=== PATIENT | female | born 1955 | race Caucasian/White ===

== ENCOUNTER 2019-10-06 08:25 | Outpatient (CLI) | payer MEDICARE, SELFPAY ==
[2019-10-06 08:40] VITALS: BP 145/86; PULSE 73; RESP 18; TEMP 36.8; O2SAT 94
[2019-10-06 08:50] VITALS: BMI 29.0
[2019-10-06] MEDS: denosumab 60 mg SDV SUBCUT (09:03)
== END 2019-10-06 08:26 | disposition home or self-care (01) ==
LOC: GILAB 08:31
PROVIDERS: PCP Family Medicine; Visit Provider Family Medicine
DX: M81.0 Age-related osteoporosis without current pathological fracture (principal)
CPT/HCPCS: 96372; J0897

== ENCOUNTER 2020-02-24 11:02 | Outpatient (CLI) | payer MEDICARE, SELFPAY ==
--- NOTE | 2020-02-24 11:27 | MM_ITS ---
WS: [id number] BILATERAL SCREENING DIGITAL MAMMOGRAM WITH CAD HISTORY: SCREENING COMPARISON: 09/14/2018 and 07/05/2013 Bilateral CC and MLO views submitted. Computer aided detection analyzed. Breast composition: There are scattered areas of fibroglandular density. No suspicious masses, microc alcifications or architectural distortion. Stable calcifications and RIGHT breast asymmetry. MM/[place] [id number] IMPRESSION: BI-RADS: 2-Benign FOLLOW UP: 1 Year Follow-up
== END 2020-02-24 11:03 | disposition home or self-care (01) ==
LOC: RADSHAW 11:07
PROVIDERS: PCP Family Medicine; Visit Provider Family Medicine
DX: Z12.31 Encounter for screening mammogram for malignant neoplasm of breast (principal)
CPT/HCPCS: 77067

== ENCOUNTER → 2021-12-26 12:59 | Outpatient (BNVA) | payer MEDICARE, SELFPAY | PROVIDERS: PCP Family Medicine; Referring Provider Family Medicine; Visit Provider Specialist | DX: G56.12 Other lesions of median nerve, left upper limb (principal); M48.02 Spinal stenosis, cervical region | CPT/HCPCS: 95908; 95909 ==

== ENCOUNTER → 2022-01-02 12:25 | Outpatient (BNVA) | payer MEDICARE, SELFPAY | PROVIDERS: PCP Family Medicine; Referring Provider Family Medicine; Visit Provider Specialist | DX: M48.02 Spinal stenosis, cervical region (principal); G56.12 Other lesions of median nerve, left upper limb; M41.9 Scoliosis, unspecified; M12.519 Traumatic arthropathy, unspecified shoulder; Z96.642 Presence of left artificial hip joint | CPT/HCPCS: 99204 ==

== ENCOUNTER → 2022-02-28 08:57 | Outpatient (BNVA) | payer MEDICARE, SELFPAY | PROVIDERS: PCP Family Medicine; Referring Provider Family Medicine; Visit Provider Specialist | DX: M48.02 Spinal stenosis, cervical region (principal); G56.12 Other lesions of median nerve, left upper limb; M12.519 Traumatic arthropathy, unspecified shoulder; F17.200 Nicotine dependence, unspecified, uncomplicated | CPT/HCPCS: 95861; 99213; 99406 ==

== ENCOUNTER 2022-03-05 09:41 | Outpatient (CLI) | payer MEDICARE, SELFPAY ==
--- NOTE | 2022-03-05 | MR_ITS ---
WS: [id number] MRI CERVICAL SPINE NONCONTRAST TECHNIQUE: Sagittal T1, T2 and STIR imaging. Axial T2, gradient, and fiesta imaging. CLINICAL INFORMATION: SPINAL STENOSIS,CERVICAL REGION COMPARISON: MRI 2017 FINDINGS: Straightening of the normal cervical lordosis. Disc osteophyte complexes worse at C4-C5, C5-C6, C6-C7 with slight contact of the cervical cord. Cord signal is normal. C2-C3: Mild facet arthropathy. Mild RIGHT and no significant LEFT foraminal narrowing. C3-C4: Disc osteophyte complex with endplate ridging. Spinal canal is patent. Mild bilateral bony for aminal narrowing. C4-C5: Disc osteophyte complex with endplate ridging. Slight indentation LEFT ventral cervical cord. Mild central canal stenosis. Severe LEFT bony foraminal narrowing. Mild to moderate RIGHT bony forami nal narrowing. Mild facet arthropathy. C5-C6: Disc osteophyte complex with endplate ridging. Moderate LEFT and mild RIGHT bony foraminal jose carlos rowing. Mild facet arthropathy. Mild central canal stenosis. C6-C7: Disc osteophyte complex with endplate ridging. Slight indentation RIGHT ventral cervical cord. Mild central canal stenosis. Moderate RIGHT and mild LEFT bony foraminal narrowing. C7-T1: Normal. Visualized brain stem structures: Normal. Prevertebral soft tissues: Normal. Small vessel changes in the boris. MR/MR cervical spin wo con* [id number] IMPRESSION: 1. Straightening of the normal cervical lordosis. Cord signal is normal. 2. Mild central canal stenosis C4-C5, C5-C6 and C6-C7 with slight contact of t he cervical cord. Shallow RIGHT pericentral disc protrusion C6-C7. This appears stable compared to 2017. 3. Progressed severe LEFT C4-C5 bony foraminal narrowing. 4. Moderate LEFT C5-C6 and RIGHT C6-C7 bony foraminal narrowing similar in dagoberto earance to previous.
--- NOTE | 2022-03-05 10:15 | MR_ITS ---
WS: [id number] MRI LEFT SHOULDER NONCONTRAST TECHNIQUE: Sagittal T2, coronal T1, T2 and proton density imaging. Axial gradient PDE imaging. CLINICAL INFORMATION: M12.519 - Traumatic arthropathy, unspecified shoulder COMPARISON: None. FINDINGS: Moderate to advanced degenerative arthritis AC joint with mild downsloping acromion. Slight subacromi al spurring. Fluid and edema at the AC joint. Small amount of subacromial/subdeltoid fluid. Tendinopa thy involving the distal supraspinatus which is intact. Normal infraspinatus. Normal teres minor and subscapularis. Normal biceps tendon in the bicipital groove. Intra-articular biceps tendon appears intact. Normal bi ceps labral anchor. Degenerative fraying of the glenoid labrum. MR/MR shoulder LT wo con* [id number] IMPRESSION: 1. Moderate to advanced degenerative arthritis AC joint with mild edema. Small amount of subacromial/subdeltoid fluid. Slight impingement on the distal supra spinatus. 2. Chronic thinning of the distal supraspinatus with tendinopathy. No high-gra de tear. 3. Rotator cuff is otherwise intact. 4. Normal biceps tendon in the bicipital groove. Normal intra-articular biceps tendon. 5. Degenerative fraying of the glenoid labrum with moderate to advanced degene rative arthritis glenohumeral joint.
== END 2022-03-05 09:42 | disposition home or self-care (01) ==
LOC: RAD 09:46
PROVIDERS: PCP Family Medicine; Visit Provider Specialist
DX: M48.02 Spinal stenosis, cervical region (principal); G56.12 Other lesions of median nerve, left upper limb; M12.512 Traumatic arthropathy, left shoulder; M50.223 Other cervical disc displacement at C6-C7 level
CPT/HCPCS: 72141; 73221

== ENCOUNTER → 2022-03-26 12:59 | Outpatient (BNVA) | payer MEDICARE, SELFPAY | PROVIDERS: PCP Family Medicine; Visit Provider Specialist | DX: M48.02 Spinal stenosis, cervical region (principal); M54.50 Low back pain, unspecified; Z96.642 Presence of left artificial hip joint; F17.200 Nicotine dependence, unspecified, uncomplicated | CPT/HCPCS: 99214 ==

== ENCOUNTER 2024-01-02 12:42 | Outpatient (CLI) | payer MEDICARE, SELFPAY ==
--- NOTE | 2024-01-02 12:47 | XR_ITS ---
WS: [id number] DEXA (DUAL ENERGY X-RAY ABSORPTIOMETRY) Bone mineral density was performed using a [employer] machine. HISTORY: ASYMPTOMATIC MENOPAUSAL STATE COMPARISON: 09/16/2018 Lumbar spine BMD (L1-L4): 1.295 g/cm2 T score: 1.0 Z score: 2.8 Total hip BMD: Right: 0.615. T score: -3.1 Z score: -1.5 Left forearm BMD: 0.467 g/cm2. T score: -4.7 Z score: -2.8 10 year probability of a major osteoporotic fracture is 17.5%. Compared to the prior study from 09/16/2018. Lumbar spine bone mineral density has decreased by 2.3%. RIGHT hip bone mineral density has decreased by 9.0%. XR/XR DEXA axial skeleton* [id number] IMPRESSION: OSTEOPOROSIS based upon the WHO classification for females. Significant decrease in bone mineral density within the lumbar spine and RIGHT hip since the prior study.
--- NOTE | 2024-01-02 12:47 | MM_ITS ---
WS: [id number] BILATERAL 3D TOMOSYNTHESIS DIGITAL SCREENING MAMMOGRAPHY WITH CAD CLINICAL INFORMATION: SCREENING HISTORY: Screening mammogram. No current complaints. COMPARISON: 2020 TECHNIQUE: Bilateral CC and MLO views. FINDINGS: Scattered fibroglandular densities bilaterally. Increasing spiculated asymmetric density inner RIGHT breast posterior depth. Recommend RIGHT breast diagnostic mammography and ultrasound in further evalu ation. LEFT breast is unremarkable. MM/[place] [id number] IMPRESSION: DENSITY: There are scattered areas of fibroglandular density. BI-RADS: 0 - Incomplete: Need additional imaging evaluation. FOLLOW UP: Need Additional Imaging Recommend RIGHT breast diagnostic mammography and ultrasound in further evaluat ion.
== END 2024-01-02 12:43 | disposition home or self-care (01) ==
LOC: RAD 12:43
PROVIDERS: PCP Family Medicine; Visit Provider Family Medicine
DX: Z12.31 Encounter for screening mammogram for malignant neoplasm of breast (principal); R92.323 Mammographic fibroglandular density, bilateral breasts; N64.89 Other specified disorders of breast; Z78.0 Asymptomatic menopausal state; M81.0 Age-related osteoporosis without current pathological fracture
CPT/HCPCS: 77063; 77067; 77080

== ENCOUNTER → 2024-01-23 12:03 | Outpatient (BNVA) | payer MEDICARE, SELFPAY | PROVIDERS: PCP Family Medicine; Referring Provider Family Medicine; Visit Provider Internal Medicine | DX: M81.0 Age-related osteoporosis without current pathological fracture (principal); R53.83 Other fatigue | CPT/HCPCS: 80053; 82306; 82310; 83970; 84439; 84443; 99204 ==

== ENCOUNTER 2024-05-10 13:25 | Outpatient (CLI) | payer MEDICARE, SELFPAY ==
--- NOTE | 2024-05-10 13:30 | MM_ITS ---
WS: [id number] RIGHT 3D TOMOSYNTHESIS DIGITAL MAMMOGRAPHY WITH CAD CLINICAL INFORMATION: ABNORMAL MAMMOGRAM HISTORY: Additional views COMPARISON: 01/02/2024 also 2014 TECHNIQUE: 3 views of the right breast were obtained. FINDINGS: Scattered fibroglandular densities of the right breast. Previously described slightly spiculated asym metric density inner RIGHT breast posterior depth is persistent on the spot compression views. Ultras ound is pending. This also appears to have been present in 2014 and is similar in appearance although ultrasound not previously performed ULTRASOUND BREAST RIGHT TECHNIQUE: Ultrasound right breast focused area of concern. CLINICAL INFORMATION: ABNORMAL MAMMOGRAM FINDINGS: Ultrasound inner RIGHT breast. Ultrasound 1 to 4 o'clock position and demonstrates normal underlying parenchymal tissue. Tiny cyst at the 3 o'clock position measuring 4 x 4 mm. Tiny [address] at the 3 o'clock position No suspicious cystic or solid lesions to target for biopsy. Findings are benign. MM/MM diag RT tomosynthesis [id number] IMPRESSION: DENSITY: There are scattered areas of fibroglandular density. BI-RADS: 2 - Benign. FOLLOW UP: 1 Year Follow-up Recommend return to annual screening mammography.
--- NOTE | 2024-05-10 14:00 | US_ITS ---
WS: [id number] RIGHT 3D TOMOSYNTHESIS DIGITAL MAMMOGRAPHY WITH CAD CLINICAL INFORMATION: ABNORMAL MAMMOGRAM HISTORY: Additional views COMPARISON: 01/02/2024 also 2014 TECHNIQUE: 3 views of the right breast were obtained. FINDINGS: Scattered fibroglandular densities of the right breast. Previously described slightly spiculated asym metric density inner RIGHT breast posterior depth is persistent on the spot compression views. Ultras ound is pending. This also appears to have been present in 2014 and is similar in appearance although ultrasound not previously performed ULTRASOUND BREAST RIGHT TECHNIQUE: Ultrasound right breast focused area of concern. CLINICAL INFORMATION: ABNORMAL MAMMOGRAM FINDINGS: Ultrasound inner RIGHT breast. Ultrasound 1 to 4 o'clock position and demonstrates normal underlying parenchymal tissue. Tiny cyst at the 3 o'clock position measuring 4 x 4 mm. Tiny [address] at the 3 o'clock position No suspicious cystic or solid lesions to target for biopsy. Findings are benign. US/US breast RT limited* [id number] IMPRESSION: DENSITY: There are scattered areas of fibroglandular density. BI-RADS: 2 - Benign. FOLLOW UP: 1 Year Follow-up Recommend return to annual screening mammography.
== END 2024-05-10 13:26 | disposition home or self-care (01) ==
LOC: RAD 13:26
PROVIDERS: PCP Family Medicine; Visit Provider Family Medicine
DX: R92.8 Other abnormal and inconclusive findings on diagnostic imaging of breast (principal); R92.321 Mammographic fibroglandular density, right breast; N64.89 Other specified disorders of breast
CPT/HCPCS: 76642; 77061; G0279

== ENCOUNTER 2024-06-28 14:44 | Outpatient (CLI) | payer MEDICARE, SELFPAY ==
--- NOTE | 2024-06-28 14:47 | USR_ITS ---
PROCEDURE INFORMATION: Exam: US Duplex Bilateral Lower Extremity Arteries Exam date and time: 06/28/2024 2:57 PM Age: 69 years old Clinical indication: Pain; Leg, lower; Bilateral; Additional info: Peripheral vascular dz TECHNIQUE: Imaging protocol: Real-time ultrasound scan of the arteries of the bilateral lower extremities with 2-D heaton scale, color Doppler flow and spectral waveform analysis. Images documented and saved. COMPARISON: No relevant prior studies available. FINDINGS: Right external iliac artery: Normal waveform. Peak velocity 115 cm/s. Right common femoral artery: No visible luminal narrowing. Normal waveform. Peak velocity 114 cm/s. Right superficial femoral artery: Normal waveform. Proximal velocity is 67 per cm/s. Velocity in the midportion is 128 cm/s. Distal velocity is 230 cm/s. Right popliteal artery: No visible luminal narrowing. Normal waveform. Peak velocity 53 cm/s. Right calf/foot arteries: Right posterior tibial and dorsalis pedis arteries are patent and demonstrate normal waveforms. Left external iliac artery: Normal waveform. Peak velocity 119 cm/second. Left common femoral artery: Normal waveform. No visible luminal narrowing. Peak velocity 102 cm/second. Left superficial femoral artery: Normal waveforms. Peak velocity is 137 cm/s proximally, 144 cm/s in the midportion, 161 cm/s distally. Left popliteal artery: Normal waveform. No visible luminal narrowing. Peak velocity 86 cm/s. Left calf/foot arteries: There are normal waveforms in the patent left posterior tibial artery and dorsalis pedis artery. Other findings: Right ankle brachial index: 0.9. Left ankle brachial index: 0.9. US/CV arterial duplex [facility] [id number] IMPRESSION: 1. 50-75% stenosis in the distal right superficial femoral artery. 2. 30-49% stenosis in the distal left superficial femoral artery.
== END 2024-06-28 14:45 | disposition home or self-care (01) ==
PROVIDERS: PCP Family Medicine; Visit Provider Family Medicine
DX: I70.293 Other atherosclerosis of native arteries of extremities, bilateral legs (principal)
CPT/HCPCS: 93925

== ENCOUNTER → 2024-08-24 13:33 | Outpatient (BNVA) | payer MEDICARE, SELFPAY | PROVIDERS: PCP Family Medicine; Visit Provider Internal Medicine | DX: I73.9 Peripheral vascular disease, unspecified (principal); R07.9 Chest pain, unspecified; F17.200 Nicotine dependence, unspecified, uncomplicated; R06.02 Shortness of breath | CPT/HCPCS: 93005; 99204 ==

== ENCOUNTER → 2024-09-06 12:54 | Outpatient (BNVA) | payer MEDICARE, SELFPAY | PROVIDERS: PCP Family Medicine; Visit Provider Internal Medicine | DX: M81.0 Age-related osteoporosis without current pathological fracture (principal); I73.9 Peripheral vascular disease, unspecified; E55.9 Vitamin D deficiency, unspecified | CPT/HCPCS: 36415; 80053; 82306 ==

== ENCOUNTER 2024-09-13 13:09 | Outpatient (CLI) | payer MEDICARE, SELFPAY ==
--- NOTE | 2024-09-13 13:15 | CTR_ITS ---
PROCEDURE INFORMATION: Exam: CTA Abdominal Aorta and Bilateral Lower Extremities (Run-off) With Contrast Exam date and time: 09/13/2024 1:27 PM Age: 69 years old Clinical indication: Foot pain; Prior surgery; Surgery date: 6+ months; Surgery type: Gb, tubal; Pain, swelling and redness in bilateral legs x 6 months; Additional info: Pad TECHNIQUE: Imaging protocol: Computed tomographic angiography of the of the abdominal aorta, pelvis and bilateral lower extremities with contrast. 3D rendering (Not supervised by radiologist): MIP and/or 3D reconstructed images were created by the technologist. Radiation optimization: All CT scans at this facility use at least one of these dose optimization techniques: automated exposure control; mA and/or kV adjustment per patient size (includes targeted exams where dose is matched to clinical indication); or iterative reconstruction. Contrast material: OMNIPAFQUE 350; Contrast volume: 125 ml; Contrast route: INTRAVENOUS (IV); COMPARISON: CT abdomen pelvis w con* [id number] 12/10/2017 12:35 PM RADIATION DOSE METRICS: Total DLP (mGy-cm): 1354.3 FINDINGS: Limitations: The images are motion degraded. Suboptimal assessment of the pelvis due to dense beam hardening from left hip prosthesis. Aorta: The aorta demonstrates moderate atherosclerotic calcification. The aorta is normal in caliber. No aneurysm. Celiac trunk and mesenteric arteries: Mild narrowing of the proximal superior mesenteric artery. Cjdt-vy-udbzduuc stenosis of the ostium of the inferior mesenteric artery. The celiac axis is patent. Renal arteries: No occlusion or significant stenosis. Right iliac arteries: Multifocal mild stenoses throughout the common iliac artery. The external and internal iliac arteries are patent. Right femoral/popliteal arteries: Minimal atherosclerotic narrowing of the common femoral artery. The profunda femoris is patent. Mild short-segment stenoses of the proximal and mid superficial femoral artery and short focal ampk-tk-ueqquxvt stenosis of the distal segment. Mild stenosis of the popliteal artery at the level of the knee joint. No occlusion. Right infrapopliteal arteries: The anterior tibial, peroneal and posterior tibial arteries are patent to the level of the distal calf. The anterior tibial artery is not well opacified at the level of the ankle and there is poor opacification of the dorsalis pedis artery. The posterior tibial artery and peroneal arteries are patent to the level of the foot. There is a patent plantar arterial arch and there is partial collateralization via the peroneal and posterior tibial arteries to the proximal dorsalis pedis artery. Left iliac arteries: Multifocal mild stenoses throughout the common iliac artery in the internal iliac artery. The external iliac artery is patent. Left femoral/popliteal arteries: Minimal atherosclerotic narrowing of the common femoral artery. The profunda femoris is patent. Mild short-segment multifocal stenoses throughout the proximal superficial femoral artery. Short focal moderate stenosis of the mid to distal superficial femoral artery segment. The popliteal artery is patent with multifocal short-segment mild stenoses. No occlusion. Left infrapopliteal arteries: The anterior tibial, posterior tibial and peroneal arteries are patent to the level of the foot. The dorsalis pedis artery is visualized and is patent. Liver: The liver is unremarkable. Gallbladder and biliary ducts: Mild intrahepatic biliary ductal dilatation, which may be due to post cholecystectomy status. Pancreas: The pancreas is unremarkable. Spleen: The spleen demonstrates punctate calcifications, consistent with remote granulomatous organism exposure. Diffuse heterogeneous enhancement throughout the spleen, which may be due to arterial phase imaging. Adrenal glands: Indeterminate 1.8 x 2.7 cm left adrenal nodule. The right adrenal gland is unremarkable. Kidneys and ureters: There are multiple bilateral simple renal cysts. There are bilateral extrarenal pelves. No hydronephrosis. Stomach and bowel: Colonic diverticulosis without evidence of diverticulitis. Appendix: There has been an appendectomy. Urinary bladder: The visualized portions of the bladder unremarkable, although is not well assessed due to motion degradation and beam hardening. Reproductive: Bilateral adnexal calcifications. Gynecological structures otherwise not well assessed due to streak artifact from left hip prosthesis. Intraperitoneal space: No significant peritoneal free fluid. No free peritoneal air. Lymph nodes: Nonspecific wall thickening of the rectum and sigmoid colon with mild ill-defined adjacent haziness and prominent paracolic lymph nodes. Bones/joints: Status post total left hip arthroplasty. Severe thoracolumbar scoliosis. The spine demonstrates severe degenerative changes at multiple levels. There are moderate degenerative changes in the right hip joint. Bilateral tricompartmental degenerative changes of the knees, rqdb-jchtqrv-okuz-right, and bilateral mild ankle joint osteoarthrosis, lkse-xgamlag-pqiz-right. Soft tissues: Soft tissues are unremarkable as visualized. CT/CT angio abd aorta runof [id number] IMPRESSION: 1. Hpxz-kc-fmjtgfoz aortoiliac and peripheral atherosclerotic disease. The RIGHT distal anterior tibial artery and dorsalis pedis arteries are not well opacified. There is a patent plantar arterial arch and there is partial collateralization via the peroneal and posterior tibial arteries to the proximal dorsalis pedis artery, which is distally not visualized. 2. The LEFT anterior tibial, posterior tibial and peroneal arteries are patent to the level of the foot. The dorsalis pedis artery is visualized and is patent. 3. Nonspecific wall thickening of the rectum and sigmoid colon with mild ill-defined adjacent haziness and prominent paracolic lymph nodes. This may represent acute mild proctocolitis, although underlying malignancy is not excluded. As an underlying colonic malignancy cannot be excluded, a follow-up examination after a course of treatment is recommended if clinically warranted. 4. Indeterminate 1.8 x 2.7 cm left adrenal nodule. This can be further evaluated with adrenal protocol CT or MRI when clinically appropriate if not previously characterized.
[2024-09-13] MEDS: iohexol 350 mg/mL 500 mL Btl (per mL) IV (13:36)
== END 2024-09-13 13:10 | disposition home or self-care (01) ==
PROVIDERS: PCP Family Medicine; Visit Provider Internal Medicine
DX: I70.201 Unspecified atherosclerosis of native arteries of extremities, right leg (principal); I70.202 Unspecified atherosclerosis of native arteries of extremities, left leg; I70.8 Atherosclerosis of other arteries; R93.89 Abnormal findings on diagnostic imaging of other specified body structures; K63.9 Disease of intestine, unspecified; R59.0 Localized enlarged lymph nodes; E27.8 Other specified disorders of adrenal gland; I70.0 Atherosclerosis of aorta; I77.1 Stricture of artery; K55.1 Chronic vascular disorders of intestine; R93.3 Abnormal findings on diagnostic imaging of other parts of digestive tract; D73.89 Other diseases of spleen; K57.30 Diverticulosis of large intestine without perforation or abscess without bleeding; Z98.890 Other specified postprocedural states; Z96.642 Presence of left artificial hip joint; M41.85 Other forms of scoliosis, thoracolumbar region; M47.9 Spondylosis, unspecified; M16.11 Unilateral primary osteoarthritis, right hip; M17.0 Bilateral primary osteoarthritis of knee; M19.072 Primary osteoarthritis, left ankle and foot; M19.071 Primary osteoarthritis, right ankle and foot
CPT/HCPCS: 75635

== ENCOUNTER 2024-10-11 14:50 | Outpatient (CLI) | payer MEDICARE, SELFPAY ==
--- NOTE | 2024-10-11 15:00 | USCV_ITS ---
Melodie Sy Age: 69 Gender: F : 1955 Exam Date: 10/11/2024 15:05 Ordering Phys: Epi Carranza M.D ([email or web address]) Technologist: JAYDON [place] [facility]: Cp, Sob BP: 174 / 80 HR: 64 Rhythm: Sinus Technical Quality: Adequate MEASUREMENTS (Male / Female) Normal Values 2D ECHO LV Diastolic Diameter PLAX 4.5 cm 4.2 - 5.9 / 3.9 - 5.3 cm IVS Diastolic Thickness 0.9 cm 0.6 - 1.0 / 0.6 - 0.9 cm IVS Systolic Thickness 1.4 cm LVPW Diastolic Thickness 1.1 cm 0.6 - 1.0 / 0.6 - 0.9 cm LVPW Systolic Thickness 1.4 cm LVOT Diameter 2.0 cm LV Ejection Fraction 2D Teich 61.0 % LV Ejection Fraction MOD 4C 60.4 % LV Ejection Fraction MOD 2C 58.1 % LV Ejection Fraction 2C AL 59.6 % LA Diameter 2.6 cm RA Systolic Volume 4C AL 28.5 ml RA Systolic Volume 4C MOD 27.0 ml LA Sys Volume AL 26.4 cm cubed LA Sys Volume Index AL 15.7 cm cubed/m squared Aorta at Sinotubular Diameter 2.5 cm IVC Diameter 1.2 cm M-MODE LA Ao Ratio MM 1.2 AV Cusp Separation MM 1.3 cm DOPPLER AV Peak Velocity 132.0 cm/s LVOT Peak Velocity 90.0 cm/s AV Area Cont Eq vti 2.3 cm squared AV Area Cont Eq pk 2.1 cm squared MV Peak Velocity 130.0 cm/s MV Area PHT 3.8 cm squared Mitral E to A Ratio 0.7 TR Peak Velocity 101.0 cm/s TR Peak Gradient 4.1 mmHg TV Peak E Velocity 85.0 cm/s PV Peak Velocity 125.0 cm/s FINDINGS Left Ventricle Left ventricle is normal in size. LV systolic function is normal with EF of 55-60%. No regional wall motion abnormalities are seen. Grade 1 disatolic dysfunction Right Ventricle Normal in size and function Right Atrium Normal in size Left Atrium Normal in size Mitral Valve Mild mitral annular calcification. Mild mitral regurgitation. Aortic Valve Structurally normal aortic valve. No significant stenosis or regurgitation Tricuspid Valve Insufficient TR jet to calculate RVSP. Pulmonic Valve Not well visualized Pericardium Normal Aorta Normal in size IVC Appears to be normal CONCLUSIONS LV systolic function is normal with EF of 55-60% Grade 1 diastolic dysfunction Mild mitral regurgitation No comparison studies are available. Epi Carranza MD (Electronically Signed) Final Date: 19 October 2024 13:19 S
== END 2024-10-11 14:51 | disposition home or self-care (01) ==
LOC: RAD 14:52
PROVIDERS: Visit Provider Internal Medicine
DX: R07.9 Chest pain, unspecified (principal); R06.02 Shortness of breath; R93.1 Abnormal findings on diagnostic imaging of heart and coronary circulation; I34.81 Nonrheumatic mitral (valve) annulus calcification; I34.0 Nonrheumatic mitral (valve) insufficiency; I73.9 Peripheral vascular disease, unspecified; F17.200 Nicotine dependence, unspecified, uncomplicated
CPT/HCPCS: 93306; 99204

== ENCOUNTER → 2024-10-19 12:28 | Outpatient (BNVA) | payer MEDICARE, SELFPAY | PROVIDERS: Visit Provider Internal Medicine | DX: R07.9 Chest pain, unspecified (principal); F17.200 Nicotine dependence, unspecified, uncomplicated; I73.9 Peripheral vascular disease, unspecified | CPT/HCPCS: 99214 ==

== ENCOUNTER 2024-11-02 12:06 | Day surgery (SDC) | payer MEDICARE, SELFPAY ==
[2024-11-02 12:22] VITALS: BP 122/74; PULSE 71; RESP 17; TEMP 36.2; O2SAT 95; BMI 23.1
--- NOTE | 2024-11-02 12:34 | ANES.PREANE2 ---
Pre-Anesthetic Assessment Height/Weight: Height 1.63 m Weight 61.235 kg Temp Pulse Resp BP Pulse Ox O2 Del Method 97.2 F L 71 17 122/74 95 Room Air 11/02/24 12:22 11/02/24 12:22 11/02/24 12:22 11/02/24 12:22 11/02/24 12:22 11/02/24 12:22 Preop Diagnosis: screening Operation Date: 11/02/24 13:15 Proposed Procedures p Colonoscopy 66907 G0105, K63.9 K62.89(Not Applicable) - Zach Collins MD Familial anesthetic complications: none Was Beta Isiah taken within 24 hours: N/A Was Clonidine taken within 24 hours: N/A Last intake: Intake Last Liquid Date 11/01/24 Last Liquid Time 23:30 Last Solid Date 10/31/24 Last Solid Time 19:30 Social Alcohol and Tobacco Marijuana daily Exam alert, oriented x 3, clear to auscultation bilaterally and regular rate & rhythm Airway Submandibular: within normal limits Cervical ROM: within normal limits Mallampati: Class II Dentition: false History/ROS No significant history except as noted and No significant complaints Pulmonary Chronic Obstructive Pulmonary Disease, Cough, Exertional Dyspnea and Shortness of Breath CV/HEM Hypertension and Peripheral Vascular Disease None reported Hepatic None reported GI Gastroesophageal Reflux Disease Metabolic None reported Musc/skel Lower Back Pain Neuropsych Depression Anesthetic Plan ASA status: 3 Anesthesia: MAC Risk of > 500 ml blood loss (7ml/kg in children): No Medications/Allergies Home Medications ?Medication ?Instructions ?Recorded ?Confirmed ?Last Taken ?Type acetaminophen 325 mg capsule 325 mg PO QID PRN Pain 12/26/21 10/27/24 10/27/24 History (Tylenol) albuterol sulfate 90 mcg/actuation 2 puff inhalation Q6H PRN 12/26/21 11/02/24 10/31/24 History aerosol inhaler shortness of air omega 7-scg-xiv-fish oil 60 mg-90 1 cap PO BID 12/26/21 10/27/24 10/27/24 History mg-500 mg capsule (Fish Oil) pantoprazole 40 mg tablet,delayed 40 mg PO DAILY 12/26/21 10/27/24 10/27/24 History release Walker with seat, wheels, and #1 ea 03/26/22 10/11/24 Unknown Rx brakes gabapentin 600 mg tablet 600 mg PO QID 90 days #360 tabs 03/26/22 11/02/24 11/01/24 Rx abaloparatide (Tymlos) See Rx Instructions .Route 10/07/24 11/02/24 11/01/24 Rx .COMPLEX #1.56 mL amlodipine 5 mg tablet 5 mg PO DAILY #90 tabs 10/19/24 11/02/24 11/01/24 Rx cilostazol 50 mg tablet 50 mg PO BID #180 tabs 10/19/24 11/02/24 11/01/24 Rx calcium 600 mg (as 1 tab PO DAILY 10/27/24 11/02/24 11/01/24 History carbonate)-vitamin D3 5 mcg (200 unit) tablet duloxetine 30 mg capsule,delayed 30 mg PO DAILY 10/27/24 11/02/24 11/01/24 History release Allergies Allergy/AdvReac Type Severity Reaction Status Date / Time Sulfa (Sulfonamide Allergy ALGY-Hives Verified 10/27/24 15:28 Antibiotics) Current Medications Generic Name Dose Route Start Last Admin Trade Name Freq PRN Reason Stop Dose Admin Sodium Chloride 1,000 mls @ 15 mls/hr 11/02/24 12:07 11/02/24 12:31 Sodium Chloride 0.9% IV 11/03/24 12:06 15 mls/hr .Q24H PRN Administration COLONOSCOPY FLUIDS PFSH Anesthesia Medical History PVD (peripheral vascular disease) Cervical spinal stenosis Social History Smoking and tobacco/nicotine status: current every day tobacco/nicotine user (smoke) Alcohol intake: never Substance/Drug Use: current Data Anesthesia Cardiac Studies: Echocardiogram 10/11/24
--- NOTE | 2024-11-02 12:49 | W.PM.OPSUD ---
Surgery/Procedure H&P Update DATE OF PROCEDURE: November 02, 2024 DATE H&P PERFORMED: 10/11/24 H&P UPDATE INFORMATION: I have reviewed H&P completed within last 30 days, I have examined patient prior to procedure and No changes to prior documentation PREOP DIAGNOSIS: screening PLANNED PROCEDURE: Operation Date: 11/02/24 13:15 Proposed Procedures p Colonoscopy 29282 G0105, K63.9 K62.89(Not Applicable) - Zach Collins MD
[2024-11-02 13:13] VITALS: BP 132/78; PULSE 68; RESP 16; TEMP 36.7; O2SAT 98
--- NOTE | 2024-11-02 13:35 | ANE.PACU2 ---
Inpatient post-anesthesia follow up: Airway intact: Yes Vital signs: Temperature 98.0 F Pulse Rate 68 Respiratory Rate 16 Blood Pressure 132/78 Pulse Oximetry 98 Oxygen Delivery Me thod Room Air Oxygen Flow Rate Fraction of Inspir ed Oxygen Hydration adequate: Yes Nausea and vomiting: No Pain level: 1 Mental status: Baseline
== END 2024-11-02 13:35 | disposition home or self-care (01) ==
PROVIDERS: Visit Provider Student in an Organized Health Care Education/Training Program
PROC: 0DJD8ZZ Inspection of Lower Intestinal Tract, Via Natural or Artificial Opening Endoscopic (ICD-10-PCS; CPT 45378; principal; 2024-11-02 13:15)
DX: K62.1 Rectal polyp (principal); D12.5 Benign neoplasm of sigmoid colon; J44.9 Chronic obstructive pulmonary disease, unspecified; I10 Essential (primary) hypertension; K21.9 Gastro-esophageal reflux disease without esophagitis; Z79.899 Other long term (current) drug therapy; Z88.2 Allergy status to sulfonamides; F17.200 Nicotine dependence, unspecified, uncomplicated; I73.9 Peripheral vascular disease, unspecified; K57.30 Diverticulosis of large intestine without perforation or abscess without bleeding
CPT/HCPCS: 45380; 88305; J2704; J7030

== ENCOUNTER → 2024-11-15 10:27 | Outpatient (BNVA) | payer MEDICARE, SELFPAY | PROVIDERS: Visit Provider Student in an Organized Health Care Education/Training Program | DX: Z09 Encounter for follow-up examination after completed treatment for conditions other than malignant neoplasm (principal) | CPT/HCPCS: 99213 ==

== ENCOUNTER → 2025-01-25 12:48 | Outpatient (BNVA) | payer MEDICARE, SELFPAY | PROVIDERS: Visit Provider Internal Medicine | DX: I73.9 Peripheral vascular disease, unspecified (principal); F17.200 Nicotine dependence, unspecified, uncomplicated | CPT/HCPCS: 99213 ==